=== PATIENT | female | born 1940 ===

== ENCOUNTER 2017-07-16 07:36 | Day surgery (SDC) | payer MEDICARE, BC, OTHER ==
[2017-07-16] MEDS ORDERED: PROPOFOL 500 MG/50 ML EMU IV ONE (07:45)
[2017-07-16 09:40] VITALS: PULSE 62; RESP 20; TEMP 97.4
[2017-07-16 09:50] VITALS: BP 147/66; O2SAT 98
== END 2017-07-16 10:20 | disposition home or self-care (01) | DRG 392 ==
LOC: SURG 07:36
PROVIDERS: ATTEND Surgery
DX: R19.5 Other fecal abnormalities (principal); K55.8 Other vascular disorders of intestine; K57.30 Diverticulosis of large intestine without perforation or abscess without bleeding; K64.4 Residual hemorrhoidal skin tags
CPT/HCPCS: J2704

== ENCOUNTER 2017-12-31 11:00 | Outpatient (CLI) | payer MEDICARE, BC, OTHER ==
[2017-07-16 09:50] VITALS: O2SAT 98
== END 2017-12-31 11:01 | disposition home or self-care (01) | DRG 556 ==
LOC: CONVCARE 11:00
PROVIDERS: ATTEND Orthopaedic Surgery
DX: M25.551 Pain in right hip (principal)

== ENCOUNTER 2019-03-31 12:50 | Outpatient (CLI) | payer MEDICARE, BC, OTHER ==
[2017-07-16 09:50] VITALS: O2SAT 98
== END 2019-03-31 12:51 | disposition home or self-care (01) | DRG 554 ==
LOC: CONVCARE 12:50
PROVIDERS: ATTEND Orthopaedic Surgery
DX: M16.11 Unilateral primary osteoarthritis, right hip (principal)